=== PATIENT | male | born 1955 | race Caucasian/White ===

== ENCOUNTER 2023-10-01 13:45 | Outpatient (OUT) | payer MEDICARE, SELFPAY | END 2023-10-01 13:46 | disposition home or self-care (01) | LOC: PST 13:46 | PROVIDERS: Visit Provider Surgery | DX: Z01.818 Encounter for other preprocedural examination (principal); Z12.11 Encounter for screening for malignant neoplasm of colon ==

== ENCOUNTER 2023-11-16 14:41 | Outpatient (OUT) | payer MEDICARE, SELFPAY ==
--- OUTSIDE RECORDS SUMMARY | 2023-11-16 14:50 | XMS_ITS | CCD ---
Author Organization [facility] Inform ion Partnership [facility] Care Team Providers Care Job Training Supervisor Name Role Phone TONYA, DR ROGER Garcia Admitting Unavailable FLOWER, DR ROGER Garcia Attending Unavailable FLOWER, DR ROGER Garcia Primary Care Unavailable FLOWER, DR ROGER Garcia Consulting Unavailable Dillan, Moriah Cabrera Primary Care Physician Dillan, COGENERATION TECHNICIAN Moriah L Attending Unavailable Dillan, COGENERATION TECHNICIAN Moriah Cabrera Attending Unavailable Dillan, COGENERATION TECHNICIAN Moriah Cabrera Admitting Unavailable Dillan, COGENERATION TECHNICIAN Moriah Cabrera Attending Unavailable Dillan, COGENERATION TECHNICIAN Moriah L Referring Unavailable Brenden JASSO Attending Unavailable Dillan, COGENERATION TECHNICIAN Moriah Cabrera Attending Unavailable MD Colby Wynn Attending Unavailable Dillan, COGENERATION TECHNICIANPolina Cabrera Attending Unavailable Medications Current Medications Medication Drug Class(es) Dates Sig (Normalized) Sig (Original) Ascorbic Acid (1 source) Vitamin C Start: 04-14-2023 ascorbic acid 500 mg, Daily, Refills(s) 0 Start Date: 04/14/23 Status: Ordered dicyclomine hydrochloride 20 mg oral tablet (1 source) Anticholinergic Start: 03-16-2023 End: 03-23-2023 take 1 tablet by mouth four times daily dicyclomine 20 mg Tab 20 mg = 1 tab(s), Oral, QID, X 7 day(s), # 28 tab(s), Refills(s) 0, Pharmacy: [facility]/pharm[facility] #[id number], 188.5, cm, 03/16/23 11:21:00 EDT, Height/Length Dosing, 106.9, kg, 03/16/23 11:21:00 EDT, Weight Dosing Start Date: 03/16/23 Stop Date: 03/23/23 Status: Ordered famotidine 20 mg oral tablet (2 sources) Histamine-2 Receptor Antagonist Start: 06-11-2023 take 1 tablet by mouth twice daily famotidine 20 mg Tab 20 mg = 1 tab(s), Oral, BID, # 180 tab(s), Refills(s) 0, [id number], cm, 04/14/23 14:04:00 EST, Height/Length Dosing, 107, kg, 04/14/23 14:04:00 EST, Weight Dosing Start Date: 06/11/23 Status: Ordered Start: 01-06-2023 take 1 tablet by andreina th twice daily famotidine 20 mg Tab 20 mg = 1 tab(s), Oral, BID, # 180 tab(s), Refills(s) 0, [id number] 188.5, cm, 01/06/23 10:37:00 EDT, Height/Length Dosing, 107.5, kg, 01/06/23 10:37:00 EDT, Weight Dosing Start Date: 01/06/23 Status: Ordered Multi Vitamin+ (1 source) Start: 04-14-2023 Multi Vitamin+ 1tab, Daily, Refill(s) 0 Start Date: 04/14/23 Status: Ordered Turmeric extract (1 source) Start: 04-14-2023 take 1000 mg by mouth once daily Turmeric 1,000 mg, Oral, Daily, Refill(s) 0 Start Date: 04/14/23 Status: Ordered vitamin B12 (1 source) Vitamin B12 Start: 04-14-2023 Vitamin B12 10 0 mcg, Daily, Refills(s) 0 Start Date: 04/14/23 Status: Ordered Problems Problem Classification Problem Date Documented Date Episodic/Chronic Disorders of lipid metabolism (1 source) Pure hypercholesterolemia, unspecified; Translations: [PURE HYPERCHOLESTEROLEMIA UNSPEC] Onset: 07-06-19 Chronic Esophageal disorders (2 sources) Gastroesophageal reflux disease 09-28-2022 Chronic Malaise and fatigue (6 sources) Other fatigue; Translations: [Fatigue] Onset: 07-02-19 Episodic Mycoses (1 source) Onychomycosis of toenails 07-16-2023 Episod ic Osteoarthritis (2 sources) Osteoarthritis 09-28-2022 Chronic Other and unspecified benign neoplasm (2 sources) Polyp of colon 09-28-2022 Episodic Other gastrointestinal disorders (2 sources) Diarrhea 10-24-2023 Episodic Other male genital disorders (1 source) Disorder of prostate, unspecified; Translations: [DISORDER OF PROSTATE UNSPECIFIED] Onset: 07-06-19 Episodic Other male genital disorders (2 sources) Disorder of prostate 09-28-2022 Episodic Other nervous system disorders (1 source) Intermittent tremor 07-16-2023 Episodic Other nutritional; endocrine; and metabolic disorders (1 source) Body mass index 30+ - obesity 01-06-2023 Chronic Other nutritional; endocrine; and metabolic disorders (1 source) Overweight 09-07-2023 Episodic Other nutritional; endocrine; and metabolic disorders (1 source) Overweight in adulthood with body mass index of 25 or more but less than 30 09-07-2023 Episodic Other screening for suspected conditions (not mental disorders or infectious disease) (1 source) Screening for malignant neoplasm of colon done; Translations: [Encounter for screening for malignant neoplasm of colon] Onset: 09-07-19 Episodic Unclassified (2 sources) Finding of sensation of abdomen 03-16-2023 Unclassified (2 sources) Patient encounter status 07-15-2023 Results Test Name Value Interpretation Reference Range Facil ity Consent for Procedure/Surger yon 09-08-2023 Consent for Procedure/Surgery [id number]#[id number] Normal [facility] Ambulatory Visit Summaryon 0 09-07-2023 Ambulatory Visit Summary GRICELDA SHAW Radha :1955 Visit Date:09/07/2023 Ambulatory Visit Instructions Your Care Team Attending Physician - Brenden JASSO MD Primary Care Physician - Moriah Burnham Referring Physician - Moriah Burnham This Is Your Medications List Contact prescribing physician if questions or concerns Turmeric ascorbic acid cyanocobalamin (Vitamin B12) famotidine (famotidine 20 mg Tab) multivitamin (Multi Vitamin+) Procedures Performed Colonoscopy (11/27/2013), Appendectomy, Colonoscopy, Colonoscopy, Deviated nasal septum, EGD (esophagogastroduod enoscopy) and closure of duodenal fistula, History of lumbar spine surgery, Repair of left inguinal hernia, Repair of right inguinal hernia. Discharge Vitals Heart Rate (Peripheral) 70 Respiratory Rate 16 Blood Pressure 128/92 Height 189 cm Height 74 in Weight 104.7 kg Weight 230.34 lb BMI 29.31 What to do next Scheduled Follow-Up Appointments Wednesday 2:30 PM EST Where: [facility] Medicine Office/Clini c Noteon 07-16-2023 Family Medicine Office/Clinic Note HPI Staff Patient presents for general check, has a few issues to discuss Health Maintenance: Colonoscopy: due this year been 10 years PSA: 07/02/22 Last Labs: 07/02/22 Immunizations: Flu: UTD questions/concerns: has the shakes, gets them really bad sometimes, when he gets a drink of water it's bad and he was told there was a pill for this fungus both great toes History of Present Illness pt presents today for occasional hand tremor, toe fungus and needs colonoscopy ordered Review of Systems PHQ Score Initial Depression Screen Score: 0 SCORE ROS - Provider Constitutional: no fever, no chills, no sweats, no fatigue Respiratory: no shortness of breath, no cough, no orthopnea, no wheezing. Cardiovascular: no chest pain, no palpitations, no edema. Neurologic: no headache, no dizziness, no numbness, no weakness. Physical Exam Vitals & Measurements T: 37.1 ?C(Temporal Artery) HR: 64(Peripheral) RR: 16 BP: 136/72 SpO2: 98% HT: 74 in HT: 189 cm WT: 104.6 kg WT: 230.12 lb BMI: 29.28 General: alert, no acute distress ENMT: oral mucosa moist, no pharyngeal erythema or exudate Cardiovascular: regular rate and rhythm, normal peripheral perfusion Respiratory: Lungs CTA, respirations non labored Extremities: no deformity, no trauma Neurological: oriented x 4, LOC appropriate for age, CN II-XII intact, motor strength equal & normal bilaterally, speech normal Assessment/Plan 1. Occasional tremors (R25.1: Tremor, unspecified) pt states he has tremors on right hand. pt states his brother and mom both have tremors as well. discussed referral to neuro. pt states it really isn't that bad right now. let's just hold off for now. 2. Colon cancer screening (Z12.11: Encounter for screening for malignant neoplasm of colon) colonoscopy ordered. pt wants to have it done at [facility] [place] [facility] 3. Toenail fungus (B35.1: Tinea unguium) pt encouraged to use vics vapo rub on toes every night 4. BMI 29.0-29.9,adult (Z68.29: Body mass index [BMI] 29.0-29.9, adult) BMI education complete Ordered: Body Mass Index (BMI) documented 3008F Current tobacco non-user 1036F Depression Screening Negative 3352F [facility] [place] Influenza immunization administered or previously received 4274F Most recent diastolic blood pressure <80 mm Hg 3078F Patient screen for fall risk: no falls in last year or 1 fall with no injury in last year 1101F Systolic BP 130-139 mm Hg (Most Recent) 3075F 5. Overweight (E66.3: Overweight) see above Ordered: Body Mass Index (BMI) documented 3008F Current tobacco non-user 1036F Depression Screening Negative 3352F [facility] Influenza immunization administered or previously received 4274F Most recent diastolic blood pressure <80 mm Hg 3078F Patient screen for fall risk: no falls in last year or 1 fall with no injury in last year 1101F Systolic BP 130-139 mm Hg (Most Recent) 3075F 6. Former smoker (Z87.891: Personal history of nicotine dependence) continue not smoking Ordered: Body Mass Index (BMI) documented 3008F Current tobacco non-user 1036F Depression Screening Negative 3352F [facility] Influenza immunization administered or previously received 4274F Most recent diastolic blood pressure <80 mm Hg 3078F Patient screen for fall risk: no falls in last year or 1 fall with no injury in last year 1101F Systolic BP 130-139 mm Hg (Most Recent) 3075F Follow-up No qualifying data available Problem List/Past Medical History Ongoing Abdominal cramping BMI 30.0-30.9,adult Colon cancer screening Colon polyps Diarrhea Disorder of prostate Fatigue GERD (gastroesophageal reflux disease) Occasional tremors Osteoarthritis Toenail fungus Historical No qualifying data Procedure/Surgical History Appendectomy, Back, Colonoscopy, Deviated nasal septum, EGD (esophagogastroduod enoscopy) and closure of duodenal fistula, Hernia, Surgery. Medications ascorbic acid, 500 mg, Daily famotidine 20 mg Tab, 20 mg= 1 tab(s), Oral, BID Multi Vitamin+, 1tab, Daily Turmeric, 1000 mg, Oral, Daily Vitamin B12, 100 mcg, Daily Allergies No Known Allergies Social History Alcohol Current, Beer, 1-2 times per week, Alcohol use interferes with work or home: No. Drinks more than intended: No. Others hurt by drinking: No. Ready to change: No. Household alcohol concerns: No., 01/06/2023 Tobacco Former smoker, quit more than 30 days ago Tobacco Use:. Cigarettes, Household tobacco concerns: No., 07/15/2023 Family History Cancer: Child. Diabetes mellitus type 2: Father, Sister and Brother. Stroke: Grandparent. Immunizations Vaccine Date Status Comments influenza virus vaccine, inactivated 02/02/2023 Recorded SARS-CoV-2 (COVID-19) [id number] 10/03/2022 Recorded SARS-CoV-2 (COVID-19) mRNA BNT-162b2 vax 08/23/2020 Given Prophylaxis SARS-CoV-2 (COVID-1 (more content not included)... Normal [facility] Comment on above: Result Comment: Elec tronically Signed By: Moriah Burnham\.br\Date and Time Signed: 07/16/23 14:11 EST Ambulatory Visit Summaryon 0 07-15-2023 Ambulatory Visit Summary CARMELLAAZAMGRICELDA PICKARD :1955 Visit Date:07/15/2023 Ambulatory Visit Instructions Your Diagnosis BMI 29.0-29.9,adult Overweight Former smoker Your Care Team Attending Physician - Moriah Burnham Primary Care Physician - Moriah Burnham This Is Your Medications List Turmeric ascorbic acid cyanocobalamin (Vitamin B12) famotidine (famotidine 20 mg Tab) multivitamin (Multi Vitamin+) Procedures Performed Appendectomy, Back, Colonoscopy, Deviated nasal septum, EGD (esophagogastroduod enoscopy) and closure of duodenal fistula, Hernia, Surgery. Discharge Vitals Temperature (Temporal Artery) 37.1 ?C Heart Rate (Peripheral) 64 Respiratory Rate 16 Blood Pressure 136/72 Height 189 cm Height 74 in Weight 104.6 kg Weight 230.12 lb BMI 29.28 What to do next Scheduled Follow-Up Appointments Wednesday 2:00 PM EST Where: [facility] 04-16-2023 Screens [id number] D3#[id number] [facility] Ambulatory Visit Summaryon 1 06-14-2022 Ambulatory Visit Summary GRICELDA SHAW :1955 Visit Date:04/14/2023 Ambulatory Visit Instructions Your Diagnosis Annual visit for general adult medical examination with abnormal findings GERD (gastroesophageal reflux disease) Osteoarthritis Abdominal cramping BMI 29.0-29.9,adult Your Care Team Attending Physician - Colby Wynn MD Primary Care Physician - Moriah Burnham This Is Your Medications List Turmeric ascorbic acid cyanocobalamin (Vitamin B12) famotidine (famotidine 20 mg Tab) multivitamin (Multi Vitamin+) Procedures Performed Appendectomy, Back, Colonoscopy, Deviated nasal septum, EGD (esophagogastroduod enoscopy) and closure of duodenal fistula, Hernia, Surgery. Discharge Vitals Heart Rate (Peripheral) 68 Blood Pressure 138/82 Height 189 cm Height 74 in Weight 107 kg Weight 235.4 lb BMI 29.95 What to do next Scheduled Follow-Up Appointments 2023 1:20 PM EST With: Moriah Burnham Where: [facility] Normal [address] [place], [place] [id number]- \.br\ Medications\.br\ What How Much When Instructions\.br\ Unchanged ascorbic acid 500 Milligram Every day\.br\ Unchanged cyanocobalamin (Vitamin B12) 100 Microgram Every day\.br\ Unchanged famotidine (famotidine 20 mg Tab) 1 Tablets By Mouth 2 times a day\.br\ Unchanged multivitamin (Multi Vitamin+) 1tab Every day\.br\ Unchanged Turmeric 1,000 Milligram By Mouth Every day\.br\ Allergies\.br\ No Known Allergies\.br\ Problems\.br\ Ongoing - Any problem that you are currently receiving treatment for.\.br\ Abdominal cramping\.br\ BMI 30.0-30.9,adult\.b r\ Colon polyps\.br\ Diarrhea\.br\ Disorder of prostate\.br\ Fatigue\.br\ GERD (gastroesophageal reflux disease)\.br\ Osteoarthritis\.br \ Patient Survey\.br\ You may receive a survey via text or e-mail asking about your office visit. Please share your experience with us by completing your survey. We appreciate your feedback and thank you for choosing us for your care.\.br\ Education Materials\.br\ Fall Prevention in the Home, Adult\.br\ Falls can cause injuries and affect people of all ages. There are many simple things that you can do to make your home safe and to help prevent falls. Ask for help when making these changes, if needed.\.br\ What actions can I take to prevent falls?\.br\ General instructions\.br\ ? \.br\ Use good lighting in all rooms. Replace any light bulbs that burn out, turn on lights if it is dark, and use night-lights.\.br\ ? \.br\ Place frequently used items in [id number] places. Lower the shelves around your home if necessary.\.br\ ? \.br\ Set up furniture so that there are clear paths around it. Avoid moving your furniture around.\.br\ ? \.br\ Remove throw rugs and other tripping hazards from the floor.\.br\ ? \.br\ Avoid walking on wet floors.\.br\ ? \.br\ Fix any uneven floor surfaces.\.br\ ? \.br\ Add color or contrast paint or tape to grab bars and handrails in your home. Place contrasting color strips on the first and last steps of staircases.\.br\ ? \.br\ When you use a stepladder, make sure that it is completely opened and that the sides and supports are firmly locked. Have someone hold the ladder while you are using it. Do not climb a closed stepladder.\.br\ ? \.br\ Know where your pets are when moving through your home.\.br\ What can I do in the bathroom?\.br\ \.br\ \.br\ ? \.br\ Keep the floor dry. Immediately clean up any water that is on the floor.\.br\ ? \.br\ Remove soap buildup in the tub or shower regularly.\.br\ ? \.br\ Use nonskid mats or decals on the floor of the tub or shower.\.br\ ? \.br\ Attach bath mats securely with double-sided, nonslip rug tape.\.br\ ? \.br\ If you need to sit down while you are in the shower, use a plastic, nonslip stool.\.br\ ? \.br\ Install grab bars by the toilet and in the tub and shower. Do not use towel bars as grab bars.\.br\ What can I do in the bedroom?\.br\ ? \.br\ Make sure that a bedside light is easy to reach.\.br\ ? \.br\ Do not use oversized bedding that reaches the floor.\.br\ ? \.br\ Have a firm chair that has side arms to use for getting dressed.\.br\ What can I do in the kitchen?\.br\ ? \.br\ Clean up any spills right away.\.br\ ? \.br\ If you need to reach for something above you, use a sturdy step stool that has a grab bar.\.br\ ? \.br\ Keep electrical cables out of the way.\.br\ ? \.br\ Do not use floor turkmen or wax that makes floors slippery. If you must use wax, make sure that it is non-skid floor wax.\.br\ What can I do with my stairs?\.br\ ? \.br\ Do not leave any items on the stairs.\.br\ ? \.br\ Make sure that you have a light switch at the top and the bottom of the stairs. Have them installed if you do not have them.\.br\ ? \.br\ Make sure that there are handrails on both sides of the stairs. Fix handrails that are broken or loose. Make sure that handrails are as long as the staircases.\.br\ ? \.br\ Install non-slip stair treads on all stairs in your home.\.br\ ? \.br\ Avoid having throw rugs at the top or bottom of stairs, or secure the rugs with carpet tape to prevent them from moving.\.br\ ? \.br\ Choose a carpet design that does not hide the edge of steps on the stairs.\.br\ ? \.br\ Check any carpeting to make sure that it is firmly attached to the stairs. Fix any carpet that is loose or worn.\.br\ What can I do on the outside of my home?\.br\ ? \.br\ Use bright outdoor lighting.\.br\ ? \.br\ Regularly repair the edges of walkways and driveways and fix any cracks.\.br\ ? \.br\ Remove high doorway thresholds.\.br\ ? \.br\ Trim any shrubbery on the main path into your home.\.br\ ? \.br\ Regularly check that handrails are securely fastened and in good repair. Both sides of all steps should have handrails.\.br\ ? \.br\ Install guardrails along the edges of any raised decks or porches.\.br\ ? \.br\ Clear walkways of debris and clutter, including tools and rocks.\.br\ ? \.br\ Have leaves, snow, and ice cleared regularly.\.br\ ? \.br\ Use sand or salt on walkways during winter months.\.br\ ? \.br\ In the garage, clean up any spills right away, including grease or oil spills.\.br\ What other actions can I take?\.br\ ? \.br\ Wear closed-toe shoes that fit well and support your feet. Wear shoes that have rubber soles or low heels.\.br\ ? \.br\ Use mobility aids as needed, such as canes, walkers, scooters, and crutches.\.br\ ? \.br\ Review your medicines with your health care provider. Some medicines can cause dizziness or changes in blood pressure, which increase your risk of falling.\.br\ Talk with your health care provider about other ways that you can decrease your risk of falls. This may include working with a physical therapist or health and safety trainer to improve your strength, balance, and endurance.\.br\ Where to find more information\.br\ ? \.br\ Centers for Disease Control and Prevention, [place]: www.cdc.gov\.br\ ? \.br\ National [place] on Aging: www.harry.nih.gov\.b r\ Contact a health care provider if:\.br\ ? \.br\ You are afraid of falling at home.\.br\ ? \.br\ You feel weak, drowsy, or dizzy at home.\.br\ ? \.br\ You fall at home.\.br\ Summary\.br\ ? \.br\ There are many simple things that you can do to make your home safe and to help prevent falls.\.br\ ? \.br\ Ways to make your home safe include removing tripping hazards and installing grab bars in the bathroom.\.br\ ? \.br\ Ask for help when making these changes in your home.\.br\ This information is not intended to replace advice given to you by your health care provider. Make sure you discuss any questions you have with your health care provider.\.br\ Document Revised: 02/09/2022 Document Reviewed: 12/11/2020 [employer] Patient Education ? 2022 [employer].br\ DASH Eating Plan\.br\ DASH stands for Dietary Approaches to Stop Hypertension. The DASH eating plan is a healthy eating plan that has been shown to:\.br\ ? \.br\ Reduce high blood pressure (hypertension).\.b r\ ? \.br\ Reduce your risk for type 2 diabetes, heart disease, and stroke.\.br\ ? \.br\ Help with weight loss.\.br\ What are tips for following this plan?\.br\ Reading food labels\.br\ ? \.br\ Check food labels for the amount of salt (sodium) per serving. Choose foods with less than 5 perce [facility] Ambulatory Visit Summary GRICELDA SHAW :1955 Visit Date:04/14/2023 Ambulatory Visit Instructions Your Care Team Attending Physician - Kingsley ALCOCER, Colby Horan Primary Care Physician - Moriah Burnham This Is Your Medications List Turmeric ascorbic acid cyanocobalamin (Vitamin B12) famotidine (famotidine 20 mg Tab) multivitamin (Multi Vitamin+) Procedures Performed Appendectomy, Back, Colonoscopy, Deviated nasal septum, EGD (esophagogastroduod enoscopy) and closure of duodenal fistula, Hernia, Surgery. What to do next Scheduled Follow-Up Appointments 2023 1:20 PM EST With: Moriah Burnham Where: [facility] Office/Clini c Noteon 04-14-2023 Family Medicine Office/Clinic Note Chief Complaint Medicare Wellness Visit Review of Systems PHQ Score Initial Depression Screen Score: 0 SCORE Physical Exam Vitals & Measurements HR: 68(Peripheral) BP: 138/82 SpO2: 98% HT: 189 cm HT: 74 in WT: 107 kg WT: 235.4 lb BMI: 29.95 Assessment/Plan 1. Annual visit for general adult medical examination with abnormal findings (Z00.01: Encounter for general adult medical examination with abnormal findings) The patient was acompanied by spouse, Shayy, was given a customized and personalized print out of all the current AHRQ USPSTF?s recommendations for preventative services and all current CDC recommended immunizations, relevant risk recommendations and the following patient brochures were given. Reviewed Medicare preventative services checklist. CDC-Falls Prevention and home safety screening reviewed. Patient denies any falls in last 12 months, voices no worry about falling, exhibits no problems with sitting, standing, or ambulation. Pt voices understanding with keeping walk way area free of clutter to prevent tripping and/or falling. [place] Advance Directives reviewed, has copy at home, encouraged to bring to office for scanning to chart. Patient denies any problems with ADL?s and Instrumental ADL?s. Cognitive screening completed with memory and clock face drawing, no deficits noted. Immunization Record reviewed with the patient. Discussed Shingrix vaccine with educational handout and availability. COVID vaccines have been administered, immunization record is up to date. Allergies and medications reviewed and up to date. Patient denies concerns with taking medication as prescribed, reviewed OTC medications with patient, medication list up to date. Blood tests were reviewed: are UTD Will have labs completed with [facility]. Colonoscopy up to date, due for repeat, 2023. Reviewed pain symptoms with patient: denies any pain symptoms Reviewed all outside providers that patient follows. Last visit summary notes available in chart and/or have been requested. Follow up scheduled, 07/15/23 AWV has been scheduled, 04/19/24 Medicare provides yearly screening for alcohol and depression concerns. This is completed during our Medicare Wellness visit for those who do not have a current diagnosis of depression or concerns with alcohol use. I spent a total of 17 minutes on this date of service which included preparing to see the patient, face to face patient care, completing clinical documentation, obtaining and/or reviewing separately obtained history, counseling and educating the patient with handouts. Explanations were provided with reviewing questionnaires. AUDIT risk assessment screening completed, risk score 2, with patient denying concerns with use. Completed PHQ-2 risk assessment for depression with risk score 0, negative findings. Patient has been reminded to notify the provider if there would be a change or concerns with symptoms with fear, unable to sleep, worrying too much or feeling down and/or sad with lost of interest with daily activities. Will continue to monitor with screening yearly during Medicare wellness visits. 2. GERD (gastroesophageal reflux disease) (K21.9: Gastro-esophageal reflux disease without esophagitis) Patient is aware of diet changes with healthier eating habits, such as not eating late at night, losing or maintaining a healthy weight. Importance of not smoking and avoiding and/or reducing alcohol intake. Avoid tight clothing around the waist line and try to avoid spicy or high acid foods. Patient taking Pepcid as directed with symptoms managed. Reviewed nutrition therapy with recommended foods to help control your symptoms. 3. Osteoarthritis (M19.90: Unspecified osteoarthritis, unspecified site) Patient is not taking medication at this time. Denies any pain symptoms. Patient will follow up with PCP as needed. 4. Abdominal cramping (R10.9: Unspecified abdominal pain) Patient denies any issues or concerns at this time. States symptoms have been under good control with diet. Patient is aware of symptoms to report to provider. Patient will continue to follow up with PCP as needed. 5. BMI 29.0-29.9,adult (Z68.29: Body mass index [BMI] 29.0-29.9, adult) The standard range for ages 18 and older is >=18.5 and < 25 kg/m2. Your BMI 29.95 today was above this range, this falls in the overweight obesity morbid obese category and there are medical benefits to weight loss. BMI monitoring is helpful with identifying a weight problem that may be related to a medical condition, or may increase the risk for medical problems. Your BMI and weight management will be followed at subsequent visits with your provider and monitored for progress. Follow-up No qualifying data available Patient Education Fall Prevention in the Home, Adult DASH Eating Plan BMI for Adults Problem List/Past Medical History Ongoing Abdominal cramping BMI 30.0-30.9,adult Colon polyps Diarrhea Disorder of prostate Fatigue GERD (gastroesophagea (more content not included)... Normal [facility] Comment on above: Result Comment: Elec tronically Signed By: Moriah Burnham\.br\Date and Time Signed: 04/14/23 16:58 EST\.br\Electronically Co-Signed By: Jori Holloway\.br\Date and Time Co-Signed: 04/14/23 14:17 EST Patient Educationon 04-14-20 23 Patient Education Caregiving Fall Prevention in the Home, Adult Falls can cause injuries and affect people of all ages. There are many simple things that you can do to make your home safe and to help prevent falls. Ask for help when making these changes, if needed. What actions can I take to prevent falls? General instructions ? Use good lighting in all rooms. Replace any light bulbs that burn out, turn on lights if it is dark, and use night-lights. ? Place frequently used items in pgzn-in-ucqsd places. Lower the shelves around your home if necessary. ? Set up furniture so that there are clear paths around it. Avoid moving your furniture around. ? Remove throw rugs and other tripping hazards from the floor. ? Avoid walking on wet floors. ? Fix any uneven floor surfaces. ? Add color or contrast paint or tape to grab bars and handrails in your home. Place contrasting color strips on the first and last steps of staircases. ? When you use a stepladder, make sure that it is completely opened and that the sides and supports are firmly locked. Have someone hold the ladder while you are using it. Do not climb a closed stepladder. ? Know where your pets are when moving through your home. What can I do in the bathroom? ? Keep the floor dry. Immediately clean up any water that is on the floor. ? Remove soap buildup in the tub or shower regularly. ? Use nonskid mats or decals on the floor of the tub or shower. ? Attach bath mats securely with double-sided, nonslip rug tape. ? If you need to sit down while you are in the shower, use a plastic, nonslip stool. ? Install grab bars by the toilet and in the tub and shower. Do not use towel bars as grab bars. What can I do in the bedroom? ? Make sure that a bedside light is easy to reach. ? Do not use oversized bedding that reaches the floor. ? Have a firm chair that has side arms to use for getting dressed. What can I do in the kitchen? ? Clean up any spills right away. ? If you need to reach for something above you, use a sturdy step stool that has a grab bar. ? Keep electrical cables out of the way. ? Do not use floor turkmen or wax that makes floors slippery. If you must use wax, make sure that it is non-skid floor wax. What can I do with my stairs? ? Do not leave any items on the stairs. ? Make sure that you have a light switch at the top and the bottom of the stairs. Have them installed if you do not have them. ? Make sure that there are handrails on both sides of the stairs. Fix handrails that are broken or loose. Make sure that handrails are as long as the staircases. ? Install non-slip stair treads on all stairs in your home. ? Avoid having throw rugs at the top or bottom of stairs, or secure the rugs with carpet tape to prevent them from moving. ? Choose a carpet design that does not hide the edge of steps on the stairs. ? Check any carpeting to make sure that it is firmly attached to the stairs. Fix any carpet that is loose or worn. What can I do on the outside of my home? ? Use bright outdoor lighting. ? Regularly repair the edges of walkways and driveways and fix any cracks. ? Remove high doorway thresholds. ? Trim any shrubbery on the main path into your home. ? Regularly check that handrails are securely fastened and in good repair. Both sides of all steps should have handrails. ? Install guardrails along the edges of any raised decks or porches. ? Clear walkways of debris and clutter, including tools and rocks. ? Have leaves, snow, and ice cleared regularly. ? Use sand or salt on walkways during winter months. ? In the garage, clean up any spills right away, including grease or oil spills. What other actions can I take? ? Wear closed-toe shoes that fit well and support your feet. Wear shoes that have rubber soles or low heels. ? Use mobility aids as needed, such as canes, walkers, scooters, and crutches. ? Review your medicines with your health care provider. Some medicines can cause dizziness or changes in blood pressure, which increase your risk of falling. Talk with your health care provider about other ways that you can decrease your risk of falls. This may include working with a physical therapist or health and safety trainer to improve your strength, balance, and endurance. Where to find more information ? Centers for Disease Control and Prevention, [place]: www.cdc.gov ? National [place] on Aging: www.harry.nih.gov Contact a health care provider if: ? You are afraid of falling at home. ? You feel weak, drowsy, or dizzy at home. ? You fall at home. Summary ? There are many simple things that you can do to make your home safe and to help prevent falls. ? Ways to make your home safe include removing tripping hazards and installing grab bars in the bathroom. ? Ask for help when making these changes in your home. This information is not intended to replace advice given to you by your health ca (more content not included)... Normal [facility] Giardia, Direct, EIAon 03-22 G. lamblia Ag IA Ql (Stl) Negative Invalid Interpretation Code Negative [facility] Comment on above: Result Comment: Perf ormed at: [facility] [address] [id number] PhD Oj Ryan Performed By: #### 3 [id number] ####[facility] [address] [place] [address] Rota Abon 03-22-2023 Rotavirus Ag IA Ql (Stl) Negative Invalid Interpretation Code Negative [facility] Comment on above: Result Comment: Perf ormed at: [facility] [address] [id number] PhD Oj Ryan Performed By: #### 3 [id number] ####[facility] [address] [place] [address] C. diff by PCRon 03-20-2023 C. diff by PCR Specimen Negative for toxigenic C. difficile by DNA amplification. Duplicate specimens will not be accepted on this patient for the next 7 days. Published data on the sensitivity of molecular assays suggest there is no diagnostic value in repeat testing of samples in close time sequence. Normal Negative [facility] Comment on above: Result Comment: This test result should be correlated with clinical presentations and medical history by a healthcare provider to determine its clinical significance.\.br\.br\ Other Comment: Order added by Discern Expert. Clostridium difficile by PCR Negative Normal Negative [facility] Comment on above: Order Comment: Order added by Discern Expert. Result Comment: This test result should be correlated with clinical presentations and medical history by a healthcare provider to determine its clinical significance. Performed By: #### 3 [id number] ####[facility] [address] [place] [address] CDiff PCRon 03-20-2023 CDiff PCR Specimen has been found to be acceptable for C. difficile testing. Normal [facility] Cdiff Specimen Acceptable Acceptable Normal [facility] Comment on above: Performed By: #### 3 [id number] ####[facility] [address] [place] [address] Order Cancelled No, PCR to follow Normal [facility] Comment on above: Performed By: #### 3 [id number] ####[facility] [address] [place] [address] Fecal WBC Lactoferrinon 02-22 Fecal WBC Lactoferrin Negative Normal Negative [facility] Comment on above: Result Comment: The semi-quantitative detection of elevated levels of fecal lactoferrin is a marker for fecal leukocytes and an indication of intestinal inflammation. Performed By: #### 3 [id number] ####[facility] [address] [place] [address] MICRO OTHER TESTSOrdered By: Corie Banegas on 03-19-2023 Fecal WBC Lactoferrin Negative 1 (03/19/23 10:12 AM) Normal Negative [facility] Comment on above: Interpretive Data: T hima semi-quantitative detection of elevated levels of fecal lactoferrin is a marker for fecal leukocytes and an indication of intestinal inflammation. Ambulatory Visit Summaryon 1 Ambulatory Visit Summary GRICELDA SHAW :1955 Visit Date:03/16/2023 Ambulatory Visit Instructions Your Diagnosis Diarrhea BMI 30.0-30.9,adult Former smoker Your Care Team Attending Physician - Moriah Burnham Primary Care Physician - Moriah Burnham This Is Your Medications List famotidine (famotidine 20 mg Tab) Procedures Performed Appendectomy, Colonoscopy, Deviated nasal septum, EGD (esophagogastroduod enoscopy) and closure of duodenal fistula, Hernia, Surgery. Discharge Vitals Temperature (Tympanic) 36.9 ?C Heart Rate (Peripheral) 66 Respiratory Rate 18 Blood Pressure 148/6 Height 188.5 cm Height 74 in Weight 106.9 kg Weight 235.18 lb BMI 30.09 What to do next Scheduled Follow-Up Appointments Wednesday 2:00 PM EST Where: [facility] Normal [facility] Office/Clini c Noteon 03-16-2023 Family Medicine Office/Clinic Note HPI Staff Gricelda is a 67 year old male presenting for acute visit Stomach pain: Onset: 1 week Characteristics: Intermittent Middle abdominal Cramping/ sharp pain Diarrhea: yes Vomiting: no Nausea: no Pt states no Diarrhea today, Did have diarrhea yesterday 3 times. Hasn't tried anything OTC [place] good on Wednesday no pain or Diarrhea then woke up Wednesday and pain started again with Diarrhea no other symptoms History of Present Illness pt presents today with c/o diarrhea and abdominal cramping for 1 week Review of Systems PHQ Score Initial Depression Screen Score: 0 ROS - Provider Constitutional: no fever, no chills, no sweats, no fatigue Respiratory: no shortness of breath, no cough, no orthopnea, no wheezing. Cardiovascular: no chest pain, no palpitations, no edema. Neurologic: no headache, no dizziness, no numbness, no weakness. GI: diarrhea, cramping Physical Exam Vitals & Measurements T: 36.9 ?C(Tympanic) HR: 66(Peripheral) RR: 18 BP: 148/6 SpO2: 97% HT: 74 in HT: 188.5 cm WT: 106.9 kg WT: 235.18 lb BMI: 30.09 General: alert, no acute distress ENMT: oral mucosa moist, no pharyngeal erythema or exudate Cardiovascular: regular rate and rhythm, normal peripheral perfusion Respiratory: Lungs CTA, respirations non labored Extremities: no deformity, no trauma Neurological: oriented x 4, LOC appropriate for age, CN II-XII intact, motor strength equal & normal bilaterally, speech normal Assessment/Plan 1. Diarrhea (R19.7: Diarrhea, unspecified) pt presents today with c/o diarrhea with abdominal cramping for 1 week. pt states he thought he was over it on Wednesday. but woke up Wednesday with symptoms again. has not had an episode today. will send supplies home for stool sample collection. if he has any more episodes he will bring stool sample in for culture. brenton sent to pharmacy for cramping pain. all questions answered.d RTC as needed Ordered: dicyclomine, 20 mg = 1 tab(s), Oral, QID, X 7 day(s), # 28 tab(s), Refills(s) 0, [id number], 188.5, cm, 03/16/23 11:21:00 EDT, Height/Length Dosing, 106.9, kg, 03/16/23 11:21:00 EDT, Weight Dosing Clostridium Difficile PCR Fecal WBC Lactoferrin Giardia lamblia, Direct Detection EIA Rotavirus Ab 2. Abdominal cramping (R10.9: Unspecified abdominal pain) Ordered: dicyclomine, 20 mg = 1 tab(s), Oral, QID, X 7 day(s), # 28 tab(s), Refills(s) 0, [id number], 188.5, cm, 03/16/23 11:21:00 EDT, Height/Length Dosing, 106.9, kg, 03/16/23 11:21:00 EDT, Weight Dosing Clostridium Difficile PCR Fecal WBC Lactoferrin Giardia lamblia, Direct Detection EIA Rotavirus Ab 3. BMI 30.0-30.9,adult (Z68.30: Body mass index [BMI] 30.0-30.9, adult) ZBMI education complete Ordered: dicyclomine, 20 mg = 1 tab(s), Oral, QID, X 7 day(s), # 28 tab(s), Refills(s) 0, [id number], 188.5, cm, 03/16/23 11:21:00 EDT, Height/Length Dosing, 106.9, kg, 03/16/23 11:21:00 EDT, Weight Dosing Clostridium Difficile PCR Fecal WBC Lactoferrin Giardia lamblia, Direct Detection EIA Rotavirus Ab 4. Former smoker (Z87.891: Personal history of nicotine dependence) continue not smoking Ordered: dicyclomine, 20 mg = 1 tab(s), Oral, QID, X 7 day(s), # 28 tab(s), Refills(s) 0, [id number], 188.5, cm, 03/16/23 11:21:00 EDT, Height/Length Dosing, 106.9, kg, 03/16/23 11:21:00 EDT, Weight Dosing Clostridium Difficile PCR Fecal WBC Lactoferrin Giardia lamblia, Direct Detection EIA Rotavirus Ab Orders: famotidine, 20 mg = 1 tab(s), Oral, BID, # 180 tab(s), Refills(s) 0, Pharmacy: [id number] Follow-up No qualifying data available Problem List/Past Medical History Ongoing Abdominal cramping BMI 30.0-30.9,adult Colon polyps Diarrhea Disorder of prostate Fatigue GERD (gastroesophageal reflux disease) Osteoarthritis Historical No qualifying data Procedure/Surgical History Appendectomy, Colonoscopy, Deviated nasal septum, EGD (esophagogastroduod enoscopy) and closure of duodenal fistula, Hernia, Surgery. Medications dicyclomine 20 mg Tab, 20 mg= 1 tab(s), Oral, QID famotidine 20 mg Tab, 20 mg= 1 tab(s), Oral, BID Allergies No Known Allergies Social History Alcohol Current, Beer, 1-2 times per week, Alcohol use interferes with work or home: No. Drinks more than intended: No. Others hurt by drinking: No. Ready to change: No. Household alcohol concerns: No., 01/06/2023 Tobacco Former smoker, quit more than 30 days ago Tobacco Use:. Cigarettes, Household tobacco concerns: No., 03/16/2023 Family History Cancer: Child. Diabetes mellitus type 2: Father, Sister and Brother. Stroke: Grandparent. Immunizations Vaccine Date Status Comments influenza virus vaccine, inactivated 02/02/2023 Recorded SARS-CoV-2 (COVID-19) [id number] 10/03/2022 Recorded SARS-CoV-2 (COVID-19) mRNA BNT-162b2 vax 08/23/2020 Given Prophylaxis SARS-CoV-2 (COVID-19) mRNA BNT-162b2 vax 08/02/2020 Given (more content not included)... Normal [facility] Comment on above: Result Comment: Elec tronically Signed By: Moriah Burnham\.enoc\Date and Time Signed: 03/16/23 12:24 EDT Ambulatory Visit Summaryon 0 01-06-2023 Ambulatory Visit Summary ROBERTALITGRICELDA PICKARD :1955 Visit Date:01/06/2023 Ambulatory Visit Instructions Your Diagnosis GERD (gastroesophageal reflux disease) BMI 30.0-30.9,adult Your Care Team Attending Physician - Moriah Burnham Primary Care Physician - Moriah Burnham This Is Your Medications List famotidine (famotidine 20 mg Tab) famotidine (famotidine 20 mg Tab) Procedures Performed Appendectomy, Colonoscopy, Deviated nasal septum, EGD (esophagogastroduod enoscopy) and closure of duodenal fistula, Hernia, Surgery. Discharge Vitals Heart Rate (Peripheral) 68 Respiratory Rate 18 Blood Pressure 148/88 Height 188.5 cm Height 74 in Weight 107.5 kg Weight 236.5 lb BMI 30.25 Medications What How Much When Instructions Unchanged famotidine (famotidine 20 mg Tab) 1 Tablets By Mouth 2 times a day Unchanged famotidine (famotidine 20 mg Tab) 1 Tablets By Mouth 2 times a day Pickup at [id number] Pharmacy Information [id number]: [address], [place] [phone] Allergies No Known Allergies Problems Ongoing - Any problem that you are currently receiving treatment for. BMI 30.0-30.9,adult Colon polyps Disorder of prostate Fatigue GERD (gastroesophageal reflux disease) Osteoarthritis Normal [facility] Family Medicine Office/Clini c Noteon 01-06-2023 Family Medicine Office/Clinic Note HPI Staff Gricelda is a 67 year old male presenting to establish care Establish Care: History: Any previous diagnosis: Gerd, Disorder of prostate, osteoarthritis History of seeing any specialist: no When was your last doctors visit: Last provider: Dr Flower Any recent labs:07/02/2022 Health Maintenance UTD: Colonoscopy: 2013 normal repeat 10 years PSA: 07/02/2022 2.91 Acute: Current issues/complaints: no concerns History of Present Illness pt presents today to establish care. Review of Systems PHQ Score Initial Depression Screen Score: 0 ROS - Provider Constitutional: no fever, no chills, no sweats, no fatigue Respiratory: no shortness of breath, no cough, no orthopnea, no wheezing. Cardiovascular: no chest pain, no palpitations, no edema. Neurologic: no headache, no dizziness, no numbness, no weakness. Physical Exam Vitals & Measurements HR: 68(Peripheral) RR: 18 BP: 148/88 SpO2: 96% HT: 74 in HT: 188.5 cm WT: 107.5 kg WT: 236.5 lb BMI: 30.25 General: alert, no acute distress ENMT: oral mucosa moist, no pharyngeal erythema or exudate Cardiovascular: regular rate and rhythm, normal peripheral perfusion Respiratory: Lungs CTA, respirations non labored Extremities: no deformity, no trauma Neurological: oriented x 4, LOC appropriate for age, CN II-XII intact, motor strength equal & normal bilaterally, speech normal Assessment/Plan 1. GERD (gastroesophageal reflux disease) (K21.9: Gastro-esophageal reflux disease without esophagitis) pt presents today to establish care. will refill famotidine. pt is due for lab work in June. will return to office then for wellness visit. pt is due for colonoscopy next year. will have it done at [facility] by DR. Jasso. will order at Wellness visit. all questions answered. RTC in jun 25. BMI 30.0-30.9,adult (Z68.30: Body mass index [BMI] 30.0-30.9, adult) BMI education complete Orders: famotidine, 20 mg = 1 tab(s), Oral, BID, # 180 tab(s), Refills(s) 0, Pharmacy: [id number], 188.5, cm, 01/06/23 10:37:00 EDT, Height/Length Dosing, 107.5, kg, 01/06/23 10:37:00 EDT, Weight Dosing Follow-up No qualifying data available Problem List/Past Medical History Ongoing BMI 30.0-30.9,adult Colon polyps Disorder of prostate Fatigue GERD (gastroesophageal reflux disease) Osteoarthritis Historical No qualifying data Procedure/Surgical History Appendectomy, Colonoscopy, Deviated nasal septum, EGD (esophagogastroduod enoscopy) and closure of duodenal fistula, Hernia, Surgery. Medications famotidine 20 mg Tab, 20 mg= 1 tab(s), Oral, BID famotidine 20 mg Tab, 20 mg= 1 tab(s), Oral, BID Allergies No Known Allergies Social History Alcohol Current, Beer, 1-2 times per week, Alcohol use interferes with work or home: No. Drinks more than intended: No. Others hurt by drinking: No. Ready to change: No. Household alcohol concerns: No., 01/06/2023 Tobacco Former smoker, quit more than 30 days ago Tobacco Use:. Cigarettes, Household tobacco concerns: No., 01/06/2023 Family History Cancer: Child. Diabetes mellitus type 2: Father, Sister and Brother. Stroke: Grandparent. Immunizations Vaccine Date Status Comments SARS-CoV-2 (COVID-19) [id number] 10/03/2022 Recorded SARS-CoV-2 (COVID-19) mRNA BNT-162b2 vax 08/23/2020 Given Prophylaxis SARS-CoV-2 (COVID-19) mRNA BNT-162b2 vax 08/02/2020 Given Prophylaxis Normal [facility] Comment on above: Result Comment: Elec tronically Signed By: Dillan RICHARD, Moriah Cabrera\.br\Date and Time Signed: 01/06/23 11:22 EDT CBC AUTO DIFFon 07-02-2022 BASO # 0.0 103/ul Normal 0.0-0.1 [facility] Comment on above: Performed By: #### C BC #### [facility] [address] [place] [address] Dr. Kenya Paula Basophils/100 WBC (Bld) 0.4 % Normal 0.2-2.0 [facility] Comment on above: Performed By: #### C BC #### [facility] [address] [place] [address] Dr. Kenya Paula EO # 0.9 103/ul Critically high 0.0-0.7 [facility] Comment on above: Performed By: #### C BC #### [facility] [address] [address] [address] Kenya Paula Eosinophils/100 WBC (Bld) 8.7 % Critically high 0.9-7.0 [facility] Comment on above: Performed By: #### C BC #### [facility] [address] [place] [address] Dr. Kenya Paula Erythrocyte distribution width (RBC) [Ratio] 12.8 % Normal 11.0-15.0 [facility] Comment on above: Performed By: #### C BC #### [facility] [address] [place] [address] Dr. Kenya Paula Hematocrit (Bld) [Volume fraction] 43.3 % Normal 42.0-54.0 [facility] Comment on above: Performed By: #### C BC #### [facility] [address] [place] [address] Dr. Kenya Paula Hemoglobin (Bld) [Mass/Vol] 14.3 g/dL Normal 14.0-18.0 [facility] Comment on above: Performed By: #### C BC #### [facility] [address] [place] [address] Dr. Kenya Paula IG # 0.03 10e3/ul Normal 0.00-0.03 [facility] Comment on above: Performed By: #### C BC #### [facility] [address] [place] [address] Dr. Kenya Paula IG % 0.3 % Normal 0.0-0.5 [facility] Comment on above: Performed By: #### C BC #### [facility] [address] [place] [address] Dr. Kenya Paula LYMPH # 2.0 103/ul Normal 1.2-3.8 [facility] Comment on above: Performed By: #### C BC #### [facility] [address] [place] [address] Dr. Kenya Paula Lymphocytes/100 WBC (Bld) 19.3 % Critically low 20.5-60.0 [facility] Comment on above: Performed By: #### C BC #### [facility] [address] [place] [address] Dr. Kenya Paula MANUAL DIFF REQ NO Normal [facility] Comment on above: Performed By: #### C BC #### [facility] [address] [place] [address] Dr. Kenya Paula MCH (RBC) [Entitic mass] 29.6 pg Normal 25.9-34.0 [facility] Comment on above: Performed By: #### C BC #### [facility] [address] [place] [address] Dr. Kenya Paula MCHC (RBC) [Mass/Vol] 33.0 g/dL Normal 29.9-35.2 [facility] Comment on above: Performed By: #### C BC #### [facility] [address] [place] [address] Dr. Kenya Paula MCV (RBC) [Entitic vol] 89.6 fL Normal 80.0-94.0 [facility] Comment on above: Performed By: #### C BC #### [facility] [address] [place] [address] Dr. Kenya Paula MONO # 0.5 103/ul Normal 0.3-0.8 [facility] Comment on above: Performed By: #### C BC #### [facility] [address] [place] [address] Dr. Kenya Paula Monocytes/100 WBC (Bld) 5.4 % Normal 1.7-12.0 [facility] Comment on above: Performed By: #### C BC #### [facility] [address] [place] [address] Dr. Kenya Paula NEUT # 6.7 103/ul Critically high 1.4-6.5 [facility] Comment on above: Performed By: #### C BC #### [facility] [address] [place] [address] Dr. Kenya Paula Neutrophils/100 WBC (Bld) 65.9 % Normal 43.0-75.0 [facility] Comment on above: Performed By: #### C BC #### [facility] [address] [place] [address] Dr. Kenya Paula Platelet mean volume (Bld) [Entitic vol] 10.0 fL Normal 9.5-13.5 [facility] Comment on above: Performed By: #### C BC #### [facility] [address] [place] [address] Dr. Kenya Paula PLT 260 103/ul Normal 150-450 [facility] Comment on above: Performed By: #### C BC #### [facility] [address] [place] [address] Dr. Kenya Paula RBC 4.83 106/ul Normal 4.70-6.10 [facility] Comment on above: Performed By: #### C BC #### [facility] [address] [address] [address] Kenya Paula WBC 10.1 103/ul Normal 4.0-11.0 [facility] Comment on above: Performed By: #### C BC #### [facility] [address] [address] [address] Kenya Paula LIPID PROFILEon 07-02-2022 CHOL-HDL RATIO NORM SEE BELOW Normal [facility] Comment on above: Result Comment: 3.3 - 4.4 LOW RISK 4.4 - 7.1 AVERAGE RISK 7.1 - 11.0 MODERATE RISK >11.0 HIGH RISK Performed By: #### L IPID, CMP, TSH #### [facility] [address] [address] [address] Kenya Paula Cholesterol [Mass/Vol] 178 mg/dL Normal <=200 [facility] Comment on above: Performed By: #### L IPID, CMP, TSH #### [facility] [address] [address] [address] Kenya Paula Cholesterol in HDL [Mass/Vol] 44 mg/dL Normal 40-60 [facility] Comment on above: Performed By: #### L IPID, CMP, TSH #### [facility] [address] [address] [address] Kenya Paula Cholesterol in LDL [Mass/Vol] 110.8 mg/dL Normal [facility] Comment on above: Performed By: #### L IPID, CMP, TSH #### [facility] [address] [address] [address] Kenya Paula Cholesterol.total/ Cholesterol in HDL [Mass ratio] 4.0 {ratio} Normal [facility] Comment on above: Performed By: #### L IPID, CMP, TSH #### [facility] [address] [address] [address] Kenya Paula HDL NORMAL > or = 60 mg/dl - LOW CARDIOVASCULAR RISK <40 mg/dl - HIGH CARDIOVASCULAR RISK Normal [facility] Comment on above: Performed By: #### L IPID, CMP, TSH #### [facility] [address] [address] [address] Kenya Paula LDL CALC NORMAL SEE BELOW Normal [facility] Comment on above: Result Comment: <100 mg/dl OPTIMAL 100 - 129 mg/dl NEAR OR ABOVE OPTIMAL 130 - 159 mg/dl BORDERLINE HIGH 160 - 189 mg/dl HIGH >190 mg/dl VERY HIGH Performed By: #### L IPID, CMP, TSH #### [facility] [address] [address] [address] Kenya Paula Triglyceride [Mass/Vol] 116 mg/dL Normal <=150 [facility] Comment on above: Performed By: #### L IPID, CMP, TSH #### [facility] [address] [address] [address] Kenya Paula VLDL CALC 23.2 mg/dL Normal [facility] Comment on above: Performed By: #### L IPID, CMP, TSH #### [facility] [address] [address] [address] Kenya Paula PROF 14(COMP METB)on 023 Albumin [Mass/Vol] 3.5 g/dL Normal 3.4-5.0 [facility] Comment on above: Performed By: #### L IPID, CMP, TSH #### [facility] [address] [place] [address] Dr. Kenya Paula Albumin/Globulin [Mass ratio] 1.2 {ratio} Normal [facility] Comment on above: Performed By: #### L IPID, CMP, TSH #### [facility] [address] [place] [address] Dr. Kenya Paula ALP [Catalytic activity/Vol] 65 U/L Normal 46-116 [facility] Comment on above: Performed By: #### L IPID, CMP, TSH #### [facility] [address] [place] [address] Dr. Kenya Paula ALT [Catalytic activity/Vol] 46 U/L Normal 16-63 [facility] Comment on above: Performed By: #### L IPID, CMP, TSH #### [facility] [address] [address] [address] Kenya Paula Anion gap [Moles/Vol] 12.0 mmol/L Normal [facility] Comment on above: Performed By: #### L IPID, CMP, TSH #### [facility] [address] [address] [address] Kenya Paula AST [Catalytic activity/Vol] 28 U/L Normal 15-37 [facility] Comment on above: Performed By: #### L IPID, CMP, TSH #### [facility] [address] [place] [address] Dr. Kenya Paula Bilirubin [Mass/Vol] 0.3 mg/dL Normal 0.2-1.0 [facility] Comment on above: Performed By: #### L IPID, CMP, TSH #### [facility] [address] [place] [address] Dr. Kenya Paula Calcium [Mass/Vol] 8.7 mg/dL Normal 8.5-10.1 [facility] Comment on above: Performed By: #### L IPID, CMP, TSH #### [facility] [address] [address] [address] Kenya Paula Chloride [Moles/Vol] 104 mmol/L Normal 98-107 [facility] Comment on above: Performed By: #### L IPID, CMP, TSH #### [facility] [address] [address] [address] Kenya Paula CO2 [Moles/Vol] 27.1 mmol/L Normal 21.0-32.0 [facility] Comment on above: Performed By: #### L IPID, CMP, TSH #### [facility] [address] [place] [address] Dr. Kenya Paula Creatinine [Mass/Vol] 0.87 mg/dL Normal 0.70-1.30 [facility] Comment on above: Performed By: #### L IPID, CMP, TSH #### [facility] [address] [address] [address] Kenya Paula EGFR-AF MOSOTHO >60 Normal >=60 [facility] Comment on above: Performed By: #### L IPID, CMP, TSH #### [facility] [address] [address] [address] Kenya Paula EGFR-NON AF [place]HO >60 Normal >=60 [facility] Comment on above: Performed By: #### L IPID, CMP, TSH #### [facility] [address] [address] [address] Kenya Paula Globulin (S) [Mass/Vol] 3.0 g/dL Normal [facility] Comment on above: Performed By: #### L IPID, CMP, TSH #### [facility] [address] [address] [address] Kenya Paula Glucose [Mass/Vol] 102 mg/dL Normal 74-106 [facility] Comment on above: Performed By: #### L IPID, CMP, TSH #### [facility] [address] [address] [address] Kenya Paula Potassium [Moles/Vol] 4.1 mmol/L Normal 3.5-5.1 [facility] Comment on above: Performed By: #### L IPID, CMP, TSH #### [facility] [address] [address] [address] Kenya Paula Protein [Mass/Vol] 6.5 g/dL Normal 6.4-8.2 [facility] Comment on above: Performed By: #### L IPID, CMP, TSH #### [facility] [address] [address] [address] Kenya Paula Sodium [Moles/Vol] 139 mmol/L Normal 136-145 [facility] Comment on above: Performed By: #### L IPID, CMP, TSH #### [facility] [address] [address] [address] Kenya Paula Urea nitrogen [Mass/Vol] 17.0 mg/dL Normal 7.0-18.0 [facility] Comment on above: Performed By: #### L IPID, CMP, TSH #### [facility] [address] [address] [address] Kenya Paula Urea nitrogen/Creatinin e [Mass ratio] 19.5 mg/mg Normal [facility] Comment on above: Performed By: #### L IPID, CMP, TSH #### [facility] [address] [address] [address] Kenya Paula TSHon 07-02-2022 TSH 1.614 uIU/mL Normal 0.358-3.740 [facility] Comment on above: Performed By: #### L IPID, CMP, TSH #### [facility] [address] [address] [address] Kenya Paula Vital Signs Date Time Vital Sign Value Performing Clinician Faci lity 09-07-2023 14:34-0400 Blood Pressure Location Brenden NILL [facility] 09-07-2023 14:34-0400 Diastolic blood pressure 92 mm[Hg] Brenden NILL [facility] 09-07-2023 14:34-0400 Heart rate 70 /min Brenden NILL [facility] 09-07-2023 14:34-0400 Respiratory rate 16 /min Brenden NILL [facility] 09-07-2023 14:34-0400 Systolic blood pressure 128 mm[Hg] Brenden NILL [facility] Encounters Encounter Date Encounter Type Care Provider Facility Start: 09-07-2023 End: 09-08-2023 ambulatory COGENERATION TECHNICIAN Moriah L Dillan Facility:[facility] Start: 09-07-2023 End: 09-07-2023 Patient encounter procedure Brenden Polly NILL [facility] Start: 07-15-2023 ambulatory COGENERATION TECHNICIAN Moriah Dillan Facilit y:[facility] Start: 07-15-2023 End: 07-16-2023 ambulatory COGENERATION TECHNICIAN Moriah L Dillan Facility:[facility] Start: 04-14-2023 End: 04-15-2023 ambulatory MD Colby Wynn Facility:[facility] Start: 03-19-2023 End: 03-20-2023 ambulatory COGENERATION TECHNICIAN Moriah L Dillan [place] Start: 03-19-2023 End: 03-19-2023 Lab Drop off Moriah L Dillan [facility] Start: 03-16-2023 End: 03-17-2023 ambulatory COGENERATION TECHNICIAN Moriah L Dillan Facility:[facility] Start: 01-06-2023 End: 01-07-2023 ambulatory COGENERATION TECHNICIAN Moriah L Dillan Facility:[facility] Start: 09-28-2022 ambulatory COGENERATION TECHNICIAN Moriah Dillan [facility]ilit [facility] Start: 07-02-2022 End: 07-03-[address] ROGER FLOWER Facility:[facility] Procedures Date Procedure Procedure Detail Performing Clinician Start: 07-02-[address] ROGER FLOWER Comment on above: Performed By: #### PSAD #### [facility] [address] [place] [address] Dr. 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 Moriah Dillan Hernia of abdominal cavity (disorder) Moriah Dillan History of operative procedure on lumbar spinal structure Brenden NILL Repair of left inguinal hernia Brenden NILL Repair of right inguinal hernia Brenden NILL Surgery (qualifier value) Estefany di Dillan Comment on above: back L4-5 Plan of Treatment Date Care Activity Detail Author Start: 04-18-2024 ambulatory Ambulatory Facility:[facility] Immunizations Immunization Date Immunization Notes Care Provider Fa kem 02-02-2023 influenza virus vaccine, unspecified formulation Moriah Dillan [facility] 10-03-2022 SARS-CoV-2 (COVID-19 ) mRNAMUL.[id number] Moriah Dillan [facility] 08-23-2020 COVID-19, mRNA, LNP- S, PF, 30 mcg/0.3 mL dose Moriah Dillan [facility] Comment on above: Reason for Medicatio n: Prophylaxis 08-02-2020 COVID-19, mRNA, LNP- S, PF, 30 mcg/0.3 mL dose Moriah Dillan [facility] Comment on above: Reason for Medicatio n: Prophylaxis Payers Date Payer Category Payer Private Health Insurance CLI [id number] 2016 Unknown [id number] 2016 Unknown [id number] 1959 Medicare [id number] 1959 Unknown [id number] 1956 Unknown [id number] 2.16.84 [id number] 1956 Unknown [id number] 2.16.8 [id number] 1956 Unknown [id number] 2.16.8 [id number] 1956 Unknown [id number] 2.16.8 [id number] 1956 Unknown [id number] 2.16.8 [id number] 1956 Unknown [id number] 2.16.8 [id number] 1956 Unknown [id number] 2.16.8 [id number] 1956 Unknown [id number] 2.16.8 [id number] 1956 Unknown [id number] 2.16.8 [id number] Social History Date Type Detail Facility Start: 03-16-2023 End: 09-07-2023 Tobacco smoking status Ex-smoker (finding) [facility] Comment on above: Quit 1993 quit in 1993 Sex Assigned At Male [facility] Tobacco smoking status Never [facility] Comment on above: quit in 1993 Quit 1993 Functional Status Date Assessment Result Facility 09-07-2023 Functional Status N/A [facility] Clinical Note 09-07-2023 Note Date & Type Note Facility 09-07-2023 Note Chief Complaint consultation for colonoscopy HPI Staff 68 year old male presents on consultation from Moriah Grimaldo for screening colonoscopy. Denies abdominal or rectal pain. No rectal bleeding or change in bowel habits. Denies nausea or vomiting. No unexplained weight loss. Last colonoscopy completed 11/2013 with internal hemorrhoids. No known family history of colon cancer. History of Present Illness 68 yo male with h/o GERD and osteoarthritis, referred for colorectal screening; denies change in bms or blood in stools; no abdominal complaints; denies asa or NSAID use, no SBE prophylaxis; abdominal operations significant for appendectomy and bilateral inguinal hernia repairs; last colonscopy 2013 wnl; no fmhx of GI malignancy or IBD; no tobacco use. Review of Systems PHQ Score Initial Depression Screen Score: 0 SCORE ROS - Provider Constitutional: no fever, no sweats, no weight loss. Eyes: no glasses, no blurred vision, no visual loss. ENMT: no dentures, no hoarseness, no swallowing difficulties, no hearing loss, no ear infection(s), no nose bleeds. Cardiovascular: normal blood pressure, no chest pain, regular heartbeat, no heart murmur. Respiratory: no shortness of breath, no cough, no asthma, no wheezing. Gastrointestinal: no nausea, no vomiting, no diarrhea, no constipation, no blood in stool, no change in bowel habits, no abdominal pain, no hepatitis. Genitourinary: no kidney stones, no urine infection, no dysuria. Musculoskeletal: no pain, no weakness. Skin: no changing moles, no rash, no skin lumps. Neurologic: no seizures, no epilepsy, no headache. Psychiatric: no emotional or psychiatric problem. Heme/Lymph: no bleeding problems, no anemia, no blood clots, no transfusions. Allergy/Immunologic: no swollen lymph nodes/glands, no IV drug abuse. Other: Additional ROS info: Except as noted in the above Review of Systems and in the History of Present Illness, all other systems have been reviewed and are negative or noncontributory. Physical Exam Vitals & Measurements HR: 70(Peripheral) RR: 16 BP: 128/92 HT: 74 in HT: 189 cm WT: 104.7 kg WT: 230.34 lb BMI: 29.31 HEENT: normal conjunctiva, sclera clear, no scleral icterus, EOM intact, PERRLA, oral mucosa moist without lesions. Neck: trachea midline, no mass, symmetric, no thyromegaly or nodules, no adenopathy Respiratory: lungs CTA, respirations non labored. Cardiovascular: regular rate and rhythm, no murmur, no pedal edema or varicosities. Gastrointestinal: obese, soft, non distended, no tenderness, no masses, no palpable hernias, diastasis recti no, no hepatosplenomegaly; normal bs Lymphatic: no cervical adenopathy, supraclavicular adenopathy. Musculoskeletal: normal gait, digits and nails without infection, nodes, cyanosis, clubbing. Skin: no rashes, no lesions, no ulcers, no subcutaneous nodules, induration. Psychiatric/Neuro: oriented to time, place, person, judgement normal, affect appropriate for age, insight intact, no focal deficits. Tests: , review of old records completed , Discussed surgical options, risks, and possible complications with patient. Assessment/Plan 1. Screening for malignant neoplasm of colon (Z12.11: Encounter for screening for malignant neoplasm of colon) plan colonoscopy under anesthesia, informed consent obtained. Follow-up No qualifying data available Problem List/Past Medical History Ongoing Abdominal cramping BMI 29.0-29.9,adult Colon cancer screening Colon polyps Diarrhea Disorder of prostate Fatigue GERD (gastroesophageal reflux disease) Occasional tremors Osteoarthritis Overweight Screening for malignant neoplasm of colon Toenail fungus Historical No qualifying data Procedure/Surgical History Colonoscopy (11/27/2013), Appendectomy, Colonoscopy, Colonoscopy, Deviated nasal septum, EGD (esophagogastroduodenoscopy) and closure of duodenal fistula, History of lumbar spine surgery, Repair of left inguinal hernia, Repair of right inguinal hernia. Medications ascorbic acid, 500 mg, Daily famotidine 20 mg Tab, 20 mg= 1 tab(s), Oral, BID Multi Vitamin+, 1tab, Daily Turmeric, 1000 mg, Oral, Daily Vitamin B12, 100 mcg, Daily Allergies No Known Allergies Social History Alcohol Current, Beer, 1-2 times per week, Alcohol use interferes with work or home: No. Drinks more than intended: No. Others hurt by drinking: No. Ready to change: No. Household alcohol concerns: No., 01/06/2023 Substance Abuse - Denies Substance Abuse, 09/07/2023 Tobacco Former smoker, quit more than 30 days ago Tobacco Use:. Never Smokeless Tobacco Use:. Cigarettes, 1 per day. Started age 15.0 Years. Stopped age 44 Years. Household tobacco concerns: No., 09/07/2023 Family History Cancer: Child. Diabetes mellitus type 2: Father, Sister and Brother. Stroke: Grandparent. Immunizations Vaccine Date Status Comments influenza virus vaccine, inactivated 02/02/2023 Recorded SARS-CoV-2 (COVID-19) mRNAMUL. (more content not included)... [facility] Comment on above: Result Comment: Elec tronically Signed By: KAMAR ALCOCER, Brenden Tolliver\Date and Time Signed: 09/07/23 19:38 EDT Evaluation + Plan note Note Date & Type Note Facility Evaluation + Plan note Future Appointments Appointment Date:04/14/2023 02:00:00 PM Scheduled Provider: Location:[facility] Appointment Type:FM Medicare Wellness Subsequent Diagnostic Tests PendingClostridium Difficile PCR 03/19/23Rotavirus Ab 03/19/23Giardia lamblia, Direct Detection EIA 03/19/23 [facility] Evaluation + Plan note Note Date & Type Note Facility Evaluation + Plan note Future Appointments Appointment Date:04/18/2024 02:30:00 PM Scheduled Provider: Location:[facility] Appointment Type:FM Medicare Wellness Subsequent [facility] course Narrative Note Date & Type Note Facility Hospital course Narrative No data available for this section [facility] Hospital Discharge instructions Note Date & Type Note Facility Hospital Discharge instructions No data available for this section [facility] Progress note Note Date & Type Note Facility Progress note No data available for this section [facility] Summary Purpose Family History No Family History Records Found No data available for this section No data available for this section No Family History Records Found Advance Directives No Advanced Directives Records FoundNo Advanced Directives Records Found Additional Source Comments (unrecognized sect ion and content) No Status Records FoundNo Status Records Found INFORMATION SOURCE (unrecogn ized section and content) DATE CREATED AUTHOR 07/06/2022 [facility] DATE CREATED AUTHOR AUTHOR'S ORGANIZ ATION 09/08/2023 [facility] Patient Care team informatio n (unrecognized section and content) Personnel Name: Moriah Burnham Address: Address: [address] [place] [address]- Personnel Name: Moriah Burnham Address: Address: [address] [place] [address]- FOR RECORDS PERTAINING TO PATIENTS WHO ARE OR HAVE BEEN ENROLLED IN A CHEMICAL DEPENDENCY/SUBSTANCEABUSE PROGRAM, SOME INFORMATION MAY BE OMITTED. This clinical summary was aggregated from multiple sources. Caution should be exercised in using it in the provision of clinical care. This summary normalizes information from multiple sources, and as a consequence, information in this document may materially change the coding, format and clinical context of patient data. In addition, data may be omitted in some cases. CLINICAL DECISIONS SHOULD BE BASED ON THE PRIMARY CLINICAL RECORDS. [facility] [employer] [facility]. provides no warranty or guarantee of the accuracy or completeness of information in this document.
== END 2023-11-16 14:42 | disposition home or self-care (01) ==
LOC: PST 14:41
PROVIDERS: PCP Nurse Practitioner; Visit Provider Surgery
DX: Z01.818 Encounter for other preprocedural examination (principal); Z12.11 Encounter for screening for malignant neoplasm of colon

== ENCOUNTER 2023-11-24 08:40 | Day surgery (SDC) | payer MEDICARE, SELFPAY ==
--- NOTE | 2023-11-24 | OP_ITS ---
OPERATION DATE: 11/24/2023 PREOPERATIVE DIAGNOSIS: Colorectal screening. POSTOPERATIVE DIAGNOSIS: Normal colonoscopy to cecum. PROCEDURE: Colonoscopy to cecum. SURGEON: Brenden Jasso M.D. ANESTHESIA: Monitored anesthesia care. ESTIMATED BLOOD LOSS: Zero. INDICATIONS AND CONSENT: Patient is a 68-year-old male presents for colorectal screening. Indications, risks, benefits, alternatives of proceeding with colonoscopy were explained extensively to the patient, including the risks of bleeding, colon perforation or anesthetic complications. All of his questions were answered. Informed consent was obtained. PROCEDURE: Patient brought to the operating room, placed in the left lateral decubitus position. Monitored anesthesia care was provided. Rectal exam was performed which revealed no masses or blood. The scope was inserted into the anal canal. Under direct visualization was advanced. It was advanced to the cecum where cecal markings were clearly identified. Upon withdrawal of the scope, mucosal surfaces were carefully examined. There was noted to be a good prep with some liquid stool throughout the colon that was partially irrigated clear. There were no mass lesions or polyps. No inflammatory changes or ulcerations. No significant diverticulosis. The scope was retroflexed in the anal canal. There was no significant hemorrhoidal disease. Scope was then withdrawn. Patient tolerated procedure well, was sent to recovery room in good condition. Follow up colonoscopy should be in 10 years for screening. CC: PAUL Briseno
--- OUTSIDE RECORDS SUMMARY | 2023-11-24 08:47 | XMS_ITS | CCD ---
Author Organization [place] [facility] Care Team Providers Care Road Packer Operator Name Role Phone TONYA, DR ROGER Garcia Admitting Unavailable FLOWER, DR ROGER Garcia Attending Unavailable FLOWER, DR ROGER Garcia Primary Care Unavailable FLOWER, DR ROGER Garcia Consulting Unavailable Dillan, Moriah Cabrera Primary Care Physician [phone] Dillan, GENERAL INSPECTOR Moriah L Attending Unavailable Dillan, GENERAL INSPECTOR Moriah Cabrera Attending Unavailable Dillan, GENERAL INSPECTOR Moriah Cabrera Admitting Unavailable Dillan, GENERAL INSPECTOR Moriah Cabrera Attending Unavailable Dillan, GENERAL INSPECTOR Moriah L Referring Unavailable Brenden JASSO Attending Unavailable Dillan, GENERAL INSPECTOR Moriah Cabrera Attending Unavailable MD Colby Wynn Attending Unavailable Dillan, GENERAL INSPECTORPolina Cabrera Attending Unavailable Medications Current Medications Medication [...] day(s), # 28 tab(s), Refills(s) 0, Pharmacy: [facility]/pharmacy #[id number], 188.5, cm, 03/16/23 11:21:00 EDT, Height/Length Dosing, 106.9, kg, 03/16/23 11:21:00 EDT, Weight Dosing Start Date: 03/16/23 Stop Date: 03/23/23 Status: Ordered famotidine 20 mg oral tablet (2 sources) Histamine-2 Receptor Antagonist Start: 06-11-2023 take 1 tablet by mouth twice daily famotidine 20 mg Tab 20 mg = 1 tab(s), Oral, BID, # 180 tab(s), Refills(s) 0, [id number] 189, cm, 04/14/23 14:04:00 EST, Height/Length Dosing, 107, kg, 04/14/23 14:04:00 EST, Weight Dosing Start Date: 06/11/23 Status: Ordered Start: 01-06-2023 take 1 tablet by andreina th twice daily famotidine 20 mg Tab 20 mg = 1 tab(s), Oral, BID, # 180 tab(s), Refills(s) 0, [id number], 188.5, cm, 01/06/23 10:37:00 EDT, Height/Length [...] Procedure/Surger yon 09-08-2023 Consent for Procedure/Surgery [id number] Normal [facility] Ambulatory Visit Summaryon 0 09-07-2023 Ambulatory Visit [...] Follow-Up Appointments Wednesday 2:30 PM EST Where: [facility] Family Medicine Agenda Normal [facility] Medicine Office/Clini c Noteon 07-16-2023 Family [...] pt wants to have it done at [facility] Ordered: [facility] Internal Ambulatory Referral 3. Toenail fungus (B35.1: Tinea unguium) pt encouraged to use vics vapo rub on toes every night 4. BMI 29.0-29.9,adult (Z68.29: Body mass index [BMI] 29.0-29.9, adult) BMI education complete Ordered: Body Mass Index (BMI) documented 3008F Current tobacco non-user 1036F Depression Screening Negative 3352F [facility] Internal Ambulatory Referral Influenza immunization administered or [...] tobacco non-user 1036F Depression Screening Negative 3352F [facility] Internal Ambulatory Referral Influenza immunization administered or [...] tobacco non-user 1036F Depression Screening Negative 3352F [facility] Internal Ambulatory Referral Influenza immunization administered or [...] virus vaccine, inactivated 02/02/2023 Recorded SARS-CoV-2 (COVID-19) [id number].[id number] 10/03/2022 Recorded SARS-CoV-2 (COVID-19) mRNA BNT-162b2 vax 08/23/2020 Given Prophylaxis SARS-CoV-2 (COVID-1 (more content not included)... Normal [facility] Comment on above: Result Comment: Elec tronically [...] Follow-Up Appointments Wednesday 2:00 PM EST Where: [facility] Screenson 04-16-2023 Screens [id number]#[id number] [facility] Ambulatory Visit Summaryon 1 06-14-2022 Ambulatory Visit [...] 1:20 PM EST With: Moriah Burnham Where: [facility] Normal [address] [place], [place] [id number]- \.br\ Medications\.br\ What How Much When Instructions\.br\ [...] ? \.br\ Place frequently used items in fwrc-ir-cxzlm places. Lower the shelves around your home [...] way.\.br\ ? \.br\ Do not use floor israeli or wax that makes floors slippery. If [...] include working with a physical therapist or applications trainer to improve your strength, balance, and endurance.\.br\ Where to find more information\.br\ ? \.br\ Centers for Disease Control and Prevention, CANDIADI: www.cdc.gov\.br\ ? \.br\ National [place] on Aging: www.harry.nih.gov\.b r\ Contact a health [...] provider.\.br\ Document Revised: 02/09/2022 Document Reviewed: 12/11/2020 [employer] Patient Education ? 2022 [employer].br\ DASH Eating Plan\.br\ DASH stands for [...] foods with less than 5 perce [facility] Ambulatory Visit Summary GRICELDA SHAW :1955 Visit Date:04/14/2023 Ambulatory Visit Instructions Your Care Team Attending Physician - Kingsley ALCOCER, Cloby Horan Primary Care Physician - Moriah Burnham This Is Your Medications List Turmeric ascorbic acid cyanocobalamin (Vitamin B12) famotidine (famotidine 20 mg Tab) multivitamin (Multi Vitamin+) Procedures Performed Appendectomy, Back, Colonoscopy, Deviated nasal septum, EGD (esophagogastroduod enoscopy) and closure of duodenal fistula, Hernia, Surgery. What to do next Scheduled Follow-Up Appointments 2023 1:20 PM EST With: Moriah Burnham [facility] Office/Clini c Noteon 04-14-2023 Family Medicine Office/Clinic [...] of clutter to prevent tripping and/or falling. [place] Advance Directives reviewed, has copy at home, [...] GERD (gastroesophagea (more content not included)... Normal [facility] Comment on above: Result Comment: Elec tronically [...] night-lights. ? Place frequently used items in ioxu-lg-znuha places. Lower the shelves around your home [...] the way. ? Do not use floor israeli or wax that makes floors slippery. If [...] include working with a physical therapist or applications trainer to improve your strength, balance, and endurance. Where to find more information ? Centers for Disease Control and Prevention, STEADI: www.cdc.gov ? National [place] on Aging: www.harry.nih.gov Contact a health care [...] health ca (more content not included)... Normal [facility] Giardia, Direct, EIAon 03-22 G. lamblia Ag IA Ql (Stl) Negative Invalid Interpretation Code Negative [facility] Comment on above: Result Comment: Perf ormed at: [facility] [address] [id number] PhD Oj Ryan Performed By: #### 3 [id number] ####[facility] [address] [place] [address] Rota Abon 03-22-2023 Rotavirus Ag IA Ql (Stl) Negative Invalid Interpretation Code Negative [facility] Comment on above: Result Comment: Perf ormed at: [facility] [address] [id number] PhD Oj Ryan Performed By: #### 3 [id number] ####[facility] [address] [place] [address] C. diff by PCRon 03-20-2023 C. diff by PCR Specimen Negative for toxigenic C. difficile by DNA amplification. Duplicate specimens will not be accepted on this patient for the next 7 days. Published data on the sensitivity of molecular assays suggest there is no diagnostic value in repeat testing of samples in close time sequence. Normal Negative [facility] Comment on above: Result Comment: This test result should be correlated with clinical presentations and medical history by a healthcare provider to determine its clinical significance.\.br\.br\ Other Comment: Order added by Discern Expert. Clostridium difficile by PCR Negative Normal Negative [facility] Comment on above: Order Comment: Order added by Discern Expert. Result Comment: This test result should be correlated with clinical presentations and medical history by a healthcare provider to determine its clinical significance. Performed By: #### 3 [id number] ####[facility] [address] [place] [address] CDiff PCRon 03-20-2023 CDiff PCR Specimen has been found to be acceptable for C. difficile testing. Normal [facility] Cdiff Specimen Acceptable Acceptable Normal [facility] Comment on above: Performed By: #### 3 [id number] ####[facility] [address] [place] [address] Order Cancelled No, PCR to follow Normal [facility] Comment on above: Performed By: #### 3 [id number] ####[facility] [address] [place] [address] Fecal WBC Lactoferrinon 02-22 Fecal WBC Lactoferrin Negative Normal Negative [facility] Comment on above: Result Comment: The semi-quantitative detection of elevated levels of fecal lactoferrin is a marker for fecal leukocytes and an indication of intestinal inflammation. Performed By: #### 3 [id number] ####[facility] [address] [place] [address] MICRO OTHER TESTSOrdered By: Corie Banegas on 03-19-2023 Fecal WBC Lactoferrin Negative 1 (03/19/23 10:12 AM) Normal Negative [facility] Man Sero Comment on above: Interpretive Data: [...] Follow-Up Appointments Wednesday 2:00 PM EST Where: [facility] Normal [facility] Office/Clini c Noteon 03-16-2023 Family Medicine Office/Clinic Note HPI Staff Gricelda is a 67 year old male presenting for acute visit Stomach pain: Onset: 1 week Characteristics: Intermittent Middle abdominal Cramping/ sharp pain Diarrhea: yes Vomiting: no Nausea: no Pt states no Diarrhea today, Did have diarrhea yesterday 3 times. Hasn't tried anything OTC [place] good on Wednesday no pain or Diarrhea [...] day(s), # 28 tab(s), Refills(s) 0, [id number], 188.5, cm, 03/16/23 11:21:00 EDT, Height/Length Dosing, 106.9, kg, 03/16/23 11:21:00 EDT, Weight Dosing Clostridium Difficile PCR Fecal WBC Lactoferrin Giardia lamblia, Direct Detection EIA Rotavirus Ab 2. Abdominal cramping (R10.9: Unspecified abdominal pain) Ordered: dicyclomine, 20 mg = 1 tab(s), Oral, QID, X 7 day(s), # 28 tab(s), Refills(s) 0, [id number], 188.5, cm, 03/16/23 11:21:00 EDT, Height/Length Dosing, 106.9, kg, 03/16/23 11:21:00 EDT, Weight Dosing Clostridium Difficile PCR Fecal WBC Lactoferrin Giardia lamblia, Direct Detection EIA Rotavirus Ab 3. BMI 30.0-30.9,adult (Z68.30: Body mass index [BMI] 30.0-30.9, adult) ZBMI education complete Ordered: dicyclomine, 20 mg = 1 tab(s), Oral, QID, X 7 day(s), # 28 tab(s), Refills(s) 0, [id number], 188.5, cm, 03/16/23 11:21:00 EDT, Height/Length Dosing, 106.9, kg, 03/16/23 11:21:00 EDT, Weight Dosing Clostridium Difficile PCR Fecal WBC Lactoferrin Giardia lamblia, Direct Detection EIA Rotavirus Ab 4. Former smoker (Z87.891: Personal history of nicotine dependence) continue not smoking Ordered: dicyclomine, 20 mg = 1 tab(s), Oral, QID, X 7 day(s), # 28 tab(s), Refills(s) 0, [id number], 188.5, cm, 03/16/23 11:21:00 EDT, Height/Length Dosing, 106.9, kg, 03/16/23 11:21:00 EDT, Weight Dosing Clostridium Difficile PCR Fecal WBC Lactoferrin Giardia lamblia, Direct Detection EIA Rotavirus Ab Orders: famotidine, 20 mg = 1 tab(s), Oral, BID, # 180 tab(s), Refills(s) 0, Pharmacy: [facility]/pharmacy #[id number] Follow-up No qualifying data available Problem List/Past [...] virus vaccine, inactivated 02/02/2023 Recorded SARS-CoV-2 (COVID-19) [id number].[id number] 10/03/2022 Recorded SARS-CoV-2 (COVID-19) mRNA BNT-162b2 vax 08/23/2020 Given Prophylaxis SARS-CoV-2 (COVID-19) mRNA BNT-162b2 vax 08/02/2020 Given (more content not included)... Normal [facility] Comment on above: Result Comment: Elec tronically [...] #[id number] Pharmacy Information [id number]: [address] [place], [place] [id number] [phone] Allergies No Known Allergies Problems Ongoing - Any problem that you are currently receiving treatment for. BMI 30.0-30.9,adult Colon polyps Disorder of prostate Fatigue GERD (gastroesophageal reflux disease) Osteoarthritis Normal [facility] Family Medicine Office/Clini c Noteon 01-06-2023 Family [...] next year. will have it done at [facility] by DR. Jasso. will order at Wellness visit. all questions answered. RTC in jun 25. BMI 30.0-30.9,adult (Z68.30: Body mass index [BMI] 30.0-30.9, adult) BMI education complete Orders: famotidine, 20 mg = 1 tab(s), Oral, BID, # 180 tab(s), Refills(s) 0, Pharmacy: [facility]/pharmacy #[id number], 188.5, cm, 01/06/23 10:37:00 EDT, Height/Length [...] Immunizations Vaccine Date Status Comments SARS-CoV-2 (COVID-19) [id number].[id number] 10/03/2022 Recorded SARS-CoV-2 (COVID-19) mRNA BNT-162b2 vax 08/23/2020 Given Prophylaxis SARS-CoV-2 (COVID-19) mRNA BNT-162b2 vax 08/02/2020 Given Prophylaxis Normal [facility] Comment on above: Result Comment: Elec tronically Signed By: Dillan RICHARD, Moriah Cabrera\.br\Date and Time Signed: 01/06/23 11:22 EDT CBC AUTO DIFFon 07-02-2022 BASO # 0.0 103/ul Normal 0.0-0.1 [facility] Comment on above: Performed By: #### C BC #### [facility] [address] [place] [address] Dr. Kenya Paula Basophils/100 WBC (Bld) 0.4 % Normal 0.2-2.0 [facility] Comment on above: Performed By: #### C BC #### [facility] [address] [place] [address] Dr. Kenya Paula EO # 0.9 103/ul Critically high 0.0-0.7 [facility] Comment on above: Performed By: #### C BC #### [facility] [address] [address] [address] Kenya Paula Eosinophils/100 WBC (Bld) 8.7 % Critically high 0.9-7.0 [facility] Comment on above: Performed By: #### C BC #### [facility] [address] [place] [address] Dr. Kenya Paula Erythrocyte distribution width (RBC) [Ratio] 12.8 % Normal 11.0-15.0 [facility] Comment on above: Performed By: #### C BC #### [facility] [address] [place] [address] Dr. Kenya Paula Hematocrit (Bld) [Volume fraction] 43.3 % Normal 42.0-54.0 [facility] Comment on above: Performed By: #### C BC #### [facility] [address] [place] [address] Dr. Kenya Paula Hemoglobin (Bld) [Mass/Vol] 14.3 g/dL Normal 14.0-18.0 [facility] Comment on above: Performed By: #### C BC #### [facility] [address] [place] [address] Dr. Kenya Paula IG # 0.03 10e3/ul Normal 0.00-0.03 [facility] Comment on above: Performed By: #### C BC #### [facility] [address] [place] [address] Dr. Kenya Paula IG % 0.3 % Normal 0.0-0.5 [facility] Comment on above: Performed By: #### C BC #### [facility] [address] [place] [address] Dr. Kenya Paula LYMPH # 2.0 103/ul Normal 1.2-3.8 [facility] Comment on above: Performed By: #### C BC #### [facility] [address] [place] [address] Dr. Kenya Paula Lymphocytes/100 WBC (Bld) 19.3 % Critically low 20.5-60.0 [facility] Comment on above: Performed By: #### C BC #### [facility] [address] [place] [address] Dr. Kenya Paula MANUAL DIFF REQ NO Normal [facility] Comment on above: Performed By: #### C BC #### [facility] [address] [place] [address] Dr. Kenya Paula MCH (RBC) [Entitic mass] 29.6 pg Normal 25.9-34.0 [facility] Comment on above: Performed By: #### C BC #### [facility] [address] [place] [address] Dr. Kenya Paula MCHC (RBC) [Mass/Vol] 33.0 g/dL Normal 29.9-35.2 [facility] Comment on above: Performed By: #### C BC #### [facility] [address] [place] [address] Dr. Kenya Paula MCV (RBC) [Entitic vol] 89.6 fL Normal 80.0-94.0 [facility] Comment on above: Performed By: #### C BC #### [facility] [address] [place] [address] Dr. Kenya Paula MONO # 0.5 103/ul Normal 0.3-0.8 [facility] Comment on above: Performed By: #### C BC #### [facility] [address] [place] [address] Dr. Kenya Paula Monocytes/100 WBC (Bld) 5.4 % Normal 1.7-12.0 [facility] Comment on above: Performed By: #### C BC #### [facility] [address] [place] [address] Dr. Kenya Paula NEUT # 6.7 103/ul Critically high 1.4-6.5 [facility] Comment on above: Performed By: #### C BC #### [facility] [address] [place] [address] Dr. Kenya Paula Neutrophils/100 WBC (Bld) 65.9 % Normal 43.0-75.0 [facility] Comment on above: Performed By: #### C BC #### [facility] [address] [place] [address] Dr. Kenya Paula Platelet mean volume (Bld) [Entitic vol] 10.0 fL Normal 9.5-13.5 [facility] Comment on above: Performed By: #### C BC #### [facility] [address] [place] [address] Dr. Kenya Paula PLT 260 103/ul Normal 150-450 [facility] Comment on above: Performed By: #### C BC #### [facility] [address] [place] [address] Dr. Kenya Paula RBC 4.83 106/ul Normal 4.70-6.10 [facility] Comment on above: Performed By: #### C BC #### [facility] [address] [address] [address] Kenya Paula WBC 10.1 103/ul Normal 4.0-11.0 [facility] Comment on above: Performed By: #### C BC #### [facility] [address] [address] [address] Kenya Paula LIPID PROFILEon 07-02-2022 CHOL-HDL RATIO NORM SEE BELOW Normal [facility] Comment on above: Result Comment: 3.3 - 4.4 LOW RISK 4.4 - 7.1 AVERAGE RISK 7.1 - 11.0 MODERATE RISK >11.0 HIGH RISK Performed By: #### L IPID, CMP, TSH #### [facility] [address] [address] [address] Kenya Paula Cholesterol [Mass/Vol] 178 mg/dL Normal <=200 [facility] Comment on above: Performed By: #### L IPID, CMP, TSH #### [facility] [address] [address] [address] Kenya Paula Cholesterol in HDL [Mass/Vol] 44 mg/dL Normal 40-60 [facility] Comment on above: Performed By: #### L IPID, CMP, TSH #### [facility] [address] [address] [address] Kenya Paula Cholesterol in LDL [Mass/Vol] 110.8 mg/dL Normal [facility] Comment on above: Performed By: #### L IPID, CMP, TSH #### [facility] [address] [address] [address] Kenya aPula Cholesterol.total/ Cholesterol in HDL [Mass ratio] 4.0 {ratio} Normal [facility] Comment on above: Performed By: #### L IPID, CMP, TSH #### [facility] [address] [address] [address] Kenya Paula HDL NORMAL > or = 60 mg/dl - LOW CARDIOVASCULAR RISK <40 mg/dl - HIGH CARDIOVASCULAR RISK Normal [facility] Comment on above: Performed By: #### L IPID, CMP, TSH #### [facility] [address] [address] [address] Kenya Paula LDL CALC NORMAL SEE BELOW Normal [facility] Comment on above: Result Comment: <100 mg/dl OPTIMAL 100 - 129 mg/dl NEAR OR ABOVE OPTIMAL 130 - 159 mg/dl BORDERLINE HIGH 160 - 189 mg/dl HIGH >190 mg/dl VERY HIGH Performed By: #### L IPID, CMP, TSH #### [facility] [address] [address] [address] Kenya Paula Triglyceride [Mass/Vol] 116 mg/dL Normal <=150 [facility] Comment on above: Performed By: #### L IPID, CMP, TSH #### [facility] [address] [address] [address] Kenya Paula VLDL CALC 23.2 mg/dL Normal [facility] Comment on above: Performed By: #### L IPID, CMP, TSH #### [facility] [address] [address] [address] Kenya Paula PROF 14(COMP METB)on 023 Albumin [Mass/Vol] 3.5 g/dL Normal 3.4-5.0 [facility] Comment on above: Performed By: #### L IPID, CMP, TSH #### [facility] [address] [place] [address] Dr. Kenya Paula Albumin/Globulin [Mass ratio] 1.2 {ratio} Normal [facility] Comment on above: Performed By: #### L IPID, CMP, TSH #### [facility] [address] [place] [address] Dr. Kenya Paula ALP [Catalytic activity/Vol] 65 U/L Normal 46-116 [facility] Comment on above: Performed By: #### L IPID, CMP, TSH #### [facility] [address] [place] [address] Dr. Kenya Paula ALT [Catalytic activity/Vol] 46 U/L Normal 16-63 [facility] Comment on above: Performed By: #### L IPID, CMP, TSH #### [facility] [address] [address] [address] Kenya Paula Anion gap [Moles/Vol] 12.0 mmol/L Normal [facility] Comment on above: Performed By: #### L IPID, CMP, TSH #### [facility] [address] [address] [address] Kenya Paula AST [Catalytic activity/Vol] 28 U/L Normal 15-37 [facility] Comment on above: Performed By: #### L IPID, CMP, TSH #### [facility] [address] [place] [address] Dr. Kenya Paula Bilirubin [Mass/Vol] 0.3 mg/dL Normal 0.2-1.0 [facility] Comment on above: Performed By: #### L IPID, CMP, TSH #### [facility] [address] [place] [address] Dr. Kenya Paula Calcium [Mass/Vol] 8.7 mg/dL Normal 8.5-10.1 [facility] Comment on above: Performed By: #### L IPID, CMP, TSH #### [facility] [address] [address] [address] eKnya Paula Chloride [Moles/Vol] 104 mmol/L Normal 98-107 [facility] Comment on above: Performed By: #### L IPID, CMP, TSH #### [facility] [address] [address] [address] Kenya Paula CO2 [Moles/Vol] 27.1 mmol/L Normal 21.0-32.0 [facility] Comment on above: Performed By: #### L IPID, CMP, TSH #### [facility] [address] [place] [address] Dr. Kenya Paula Creatinine [Mass/Vol] 0.87 mg/dL Normal 0.70-1.30 [facility] Comment on above: Performed By: #### L IPID, CMP, TSH #### [facility] [address] [address] [address] Kenya Paula EGFR-AF SOUTH [place]OREAN >60 Normal >=60 [facility] Comment on above: Performed By: #### L IPID, CMP, TSH #### [facility] [address] [address] [address] Kenya Paula EGFR-NON AF [place]ORE[place] >60 Normal >=60 [facility] Comment on above: Performed By: #### L IPID, CMP, TSH #### [facility] [address] [address] [address] Kenya Paula Globulin (S) [Mass/Vol] 3.0 g/dL Normal [facility] Comment on above: Performed By: #### L IPID, CMP, TSH #### [facility] [address] [address] [address] Kenya Paula Glucose [Mass/Vol] 102 mg/dL Normal 74-106 [facility] Comment on above: Performed By: #### L IPID, CMP, TSH #### [facility] [address] [address] [address] Kenya Paula Potassium [Moles/Vol] 4.1 mmol/L Normal 3.5-5.1 [facility] Comment on above: Performed By: #### L IPID, CMP, TSH #### [facility] [address] [address] [address] Kenya Paula Protein [Mass/Vol] 6.5 g/dL Normal 6.4-8.2 [facility] Comment on above: Performed By: #### L IPID, CMP, TSH #### [facility] [address] [address] [address] Kenya Paula Sodium [Moles/Vol] 139 mmol/L Normal 136-145 [facility] Comment on above: Performed By: #### L IPID, CMP, TSH #### [facility] [address] [address] [address] Kenya Paula Urea nitrogen [Mass/Vol] 17.0 mg/dL Normal 7.0-18.0 [facility] Comment on above: Performed By: #### L IPID, CMP, TSH #### [facility] [address] [address] [address] Kenya Paula Urea nitrogen/Creatinin e [Mass ratio] 19.5 mg/mg Normal [facility] Comment on above: Performed By: #### L IPID, CMP, TSH #### [facility] [address] [address] [address] Kenya Paula TSHon 07-02-2022 TSH 1.614 uIU/mL Normal 0.358-3.740 [facility] Comment on above: Performed By: #### L IPID, CMP, TSH #### [facility] [address] [address] [address] Kenya Paula Vital Signs Date Time Vital Sign Value Performing Clinician Faci lity 09-07-2023 14:34-0400 Blood Pressure Location Brenden NILL [facility] 09-07-2023 14:34-0400 Diastolic blood pressure 92 mm[Hg] Brenden NILL [facility] 09-07-2023 14:34-0400 Heart rate 70 /min Brenden NILL [facility] 09-07-2023 14:34-0400 Respiratory rate 16 /min Brenden NILL [facility] 09-07-2023 14:34-0400 Systolic blood pressure 128 mm[Hg] Brenden NILL [facility] Encounters Encounter Date Encounter Type Care Provider Facility Start: 09-07-2023 End: 09-08-2023 ambulatory GENERAL INSPECTOR Moriah L Dillan Facility:[facility] Start: 09-07-2023 End: 09-07-2023 Patient encounter procedure Brenden Polly NILL [facility] Start: 07-15-2023 ambulatory GENERAL INSPECTOR Moriah Dillan Facilit y:[facility] Start: 07-15-2023 End: 07-16-2023 ambulatory GENERAL INSPECTOR Moriah L Dillan Facility:[facility] Start: 04-14-2023 End: 04-15-2023 ambulatory MD Colby Wynn Facility:[facility] Start: 03-19-2023 End: 03-20-2023 ambulatory GENERAL INSPECTOR Moriah L Dillan Facility:[facility] Start: 03-19-2023 End: 03-19-2023 Lab Drop off Moriah L Dillan [facility] Start: 03-16-2023 End: 03-17-2023 ambulatory GENERAL INSPECTOR Moriah L Dillan Facility[facility] Start: 01-06-2023 End: 01-07-2023 ambulatory GENERAL INSPECTOR Moriah L Dillan [facility] Start: 09-28-2022 ambulatory GENERAL INSPECTOR Moriah Dillan Facilit y:[facility] Start: 07-02-2022 End: 07-03-[address] ROGER FLOWER Facility:[facility] Procedures Date Procedure Procedure Detail Performing Clinician Start: 07-02-[address] ROGER FLOWER Comment on above: Performed By: #### PSAD #### [facility] [address] [place] [address] Dr. Kenya Paula Start: 11-27-2013 Colonoscopy Brenden [...] Author Start: 04-18-2024 ambulatory Ambulatory Facility:[facility] Immunizations Immunization Date Immunization Notes Care Provider Fa kem 02-02-2023 influenza virus vaccine, unspecified formulation Moriah Dillan [facility] 10-03-2022 SARS-CoV-2 (COVID-19 ) [id number] Moriah Dillan [facility] 08-23-2020 COVID-19, mRNA, LNP- S, PF, 30 mcg/0.3 mL dose Moriah Dillan [facility] Comment on above: Reason for Medicatio n: Prophylaxis 08-02-2020 COVID-19, mRNA, LNP- S, PF, 30 mcg/0.3 mL dose Moriah Dillan [facility] Comment on above: Reason for Medicatio n: Prophylaxis Payers Date Payer Category Payer Private Health Insurance [id number] 2016 Unknown [id number] 2016 Unknown [id number] 1958 Medicare [id number] 1959 Unknown [id number] 1956 Unknown [id number] 2.16.84 [id number] 1956 Unknown [id number] 2.16.8 [id number] 1956 Unknown [id number] 2.16.8 [id number] 1956 Unknown [id number] 2.16.8 [id number] 1956 Unknown [id number] 2.16.8 [id number] 1956 Unknown [id number] 2.16.8 [id number] 1956 Unknown [id number] 2.16.8 [id number] 1956 Unknown [id number] 2.16.8 [id number] 1956 Unknown [id number] 2.16.8 [id number] Social History Date Type Detail Facility Start: 03-16-2023 End: 09-07-2023 Tobacco smoking status Ex-smoker (finding) [facility] Comment on above: Quit 1993 quit in 1993 Sex Assigned At Male [facility] Tobacco smoking status Never [facility] Comment on above: quit in 1993 Quit 1993 Functional Status Date Assessment Result Facility 09-07-2023 Functional Status N/A [facility] Clinical Note 09-07-2023 Note Date & Type [...] SARS-CoV-2 (COVID-19) mRNAMUL. (more content not included)... [facility] Comment on above: Result Comment: Elec tronically Signed By: KAMAR ALCOCER, Brenden Tolliver\Date and Time Signed: 09/07/23 19:38 EDT Evaluation + Plan note Note Date & Type Note Facility Evaluation + Plan note Future Appointments Appointment Date:04/14/2023 02:00:00 PM Scheduled Provider: Location:[facility] Appointment Type:FM Medicare Wellness Subsequent Diagnostic Tests PendingClostridium Difficile PCR 03/19/23Rotavirus Ab 03/19/23Giardia lamblia, Direct Detection EIA 03/19/23 [facility] Evaluation + Plan note Note Date & Type Note Facility Evaluation + Plan note Future Appointments Appointment Date:04/18/2024 02:30:00 PM Scheduled Provider: Location:[facility] Appointment Type:FM Medicare Wellness Subsequent [facility] Hospital course Narrative Note Date & Type Note Facility Hospital course Narrative No data available for this section [facility] Hospital Discharge instructions Note Date & Type Note Facility Hospital Discharge instructions No data available for this section [facility] Progress note Note Date & Type Note Facility Progress note No data available for this section [facility] Summary Purpose Family History No Family History [...] DATE CREATED AUTHOR AUTHOR'S ORGANIZ ATION 09/08/2023 [facility] Patient Care team informatio n (unrecognized section and content) Personnel Name: Moriah Burnham Address: Address: [address] [place] [address]- Personnel Name: Moriah Burnham Address: Address: [address] [place] [address]- FOR RECORDS PERTAINING TO PATIENTS WHO ARE [...] BE BASED ON THE PRIMARY CLINICAL RECORDS. [facility] [employer] [facility]. provides no warranty or guarantee of the accuracy or completeness of information in this document.
[2023-11-24 08:48] VITALS: BP 155/85; PULSE 70; TEMP 36.2; O2SAT 94; BMI 26.8
[2023-11-24] MEDS: LACTATED RINGER'S SOLUTION 1,000 ML 50 ML IV (09:11)
[2023-11-24 10:59] VITALS: BP 132/82; PULSE 65; TEMP 36.1; O2SAT 98
[2023-11-24 11:14] VITALS: BP 134/68; PULSE 64; O2SAT 98
[2023-11-24 11:28] VITALS: BP 148/77; PULSE 65; O2SAT 99
== END 2023-11-24 11:29 | disposition home or self-care (01) ==
PROVIDERS: PCP Nurse Practitioner; Visit Provider Surgery
PROC: (CPT G0121; principal; 2023-11-24 09:55)
DX: Z12.11 Encounter for screening for malignant neoplasm of colon (principal); K21.9 Gastro-esophageal reflux disease without esophagitis; M19.90 Unspecified osteoarthritis, unspecified site; Z87.891 Personal history of nicotine dependence; Z86.010 Personal history of colon polyps
CPT/HCPCS: G0121; J2250; J2704; J3010